=== PATIENT | male | born 1970 | race Caucasian/White ===

== ENCOUNTER 2025-05-11 06:27 | Inpatient (IN) | payer MEDICAID ==
[~2025-05-11] VITALS: Ht 157.5 cm; Wt 73.5 kg
[~2025-05-11 06:27] MED LIST: ASPI-1497 PO; ATOR40TA70 PO
[2025-05-11] MEDS ORDERED: SODIUM CHLORIDE 0.45% 500 ML IV ONE (07:30)
[2025-05-11] MEDS ORDERED: PANT40TA51 PO (07:31)
[2025-05-11] MEDS ORDERED: NICARDIPINE 100MCG/ML 10ML VIAL (CATH LAB) IV ONE (08:00)
[2025-05-11] MEDS ORDERED: HEPARIN 1000 UNITS/ML 10ML ONE (08:34)
[2025-05-11] MEDS ORDERED: LIDOCAINE HCL 1% 20ML VIAL ONE (08:34)
[2025-05-11] MEDS ORDERED: IODIXANOL 320 MG/ML 150ML BOTTLE IV ONE (08:34)
[2025-05-11] MEDS ORDERED: MIDAZOLAM HCL 2 MG/2 ML VIAL ONE (09:04)
[2025-05-11] MEDS ORDERED: FENTANYL CITRATE/PF 50MCG/ML 2ML VIAL ONE (09:05)
[2025-05-11] MEDS ORDERED: CLOPIDOGREL 75MG TABLET ONE (09:44)
[2025-05-11] MEDS ORDERED: ASPIRIN 325MG EC TABLET PO ONE (09:54)
[2025-05-11] MEDS ORDERED: ASPIRIN 325MG TABLET ONE (10:23)
[2025-05-11] MEDS ORDERED: ACETAMINOPHEN 325MG TABLET PO PRN (10:30)
[2025-05-11] MEDS ORDERED: ATROPINE SULFATE 1MG/10ML SYR IV PRN (10:30)
[2025-05-11] MEDS ORDERED: ONDANSETRON HCL 4MG/2ML INJ IV PRN (10:30)
[2025-05-11 10:39] VITALS: BP 159/97; PULSE 68; RESP 12; TEMP 36.8; O2SAT 97
[2025-05-11 11:22] VITALS: BP 149/87; PULSE 63; RESP 15; TEMP 36.8
[2025-05-11 12:00] VITALS: BP 133/98; PULSE 65; RESP 16; TEMP 36.8; O2SAT 97
[2025-05-11 16:00] VITALS: BP 134/86; PULSE 68; RESP 11; TEMP 36.8; O2SAT 95
[2025-05-11] MEDS: METOPROLOL TARTRATE 25MG TABLET PO SCH ×2 (16:05→20:34)
[2025-05-11] MEDS: PANTOPRAZOLE 40MG DR TABLET PO SCH (16:05)
[2025-05-11 20:00] VITALS: BP 127/79; PULSE 67; RESP 13; TEMP 37.2; O2SAT 98
[2025-05-11] MEDS: ATORVASTATIN CALCIUM 40MG TABLET PO SCH (20:34)
[2025-05-12] VITALS: BP 118/77; PULSE 66; RESP 18; TEMP 36.8; O2SAT 96
[2025-05-12 04:00] VITALS: BP 123/81; PULSE 71; RESP 19; TEMP 36.6; O2SAT 97
[2025-05-12] MEDS: PANTOPRAZOLE 40MG DR TABLET PO SCH (06:10)
[2025-05-12 07:38] LABS: BASOPHILS % 0.4 % (0.0-2.0); EOSINOPHILS % 2.6 % (0.0-5.0); HEMATOCRIT. 44.6 % (42.0-52.0); LYMPHOCYTES % 15.9 % (20.0-50.0); MEAN CORPUSCULAR HEMOGLOBIN 31.4 pg (28.0-32.0); MEAN CORPUSCULAR HGB CONC 33.7 g/dL (31.0-37.0); MEAN CORPUSCULAR VOLUME 93.3 fL (80.0-94.0); MEAN PLATELET VOLUME 8.1 fl (7.4-10.4); MONOCYTES % 7.5 % (2.0-8.0); NEUTROPHILS % 73.6 % (40.0-76.0); PLATELET 156 x1000/uL (130-400); RED BLOOD CELL COUNT 4.78 mill/uL (4.7-6.1); RED CELL DISTRIBUTION WIDTH 13.4 % (11.6-14.6); WHITE BLOOD COUNT 7.1 x1000/uL (4.5-11.0)
[2025-05-12 07:46] LABS: CARBON DIOXIDE 24 mEq/L (21-32); CHLORIDE 105 mEq/L (98-107); SODIUM 140 mEq/L (136-145)
[2025-05-12 07:47] LABS: CALCIUM 9.4 mg/dL (8.7-10.4)
[2025-05-12 07:52] LABS: CREATININE 0.8 mg/dL (0.6-1.3); GLUCOSE 112 mg/dL (70-105); UREA NITROGEN BLOOD 13 mg/dL (9-23)
[2025-05-12 08:00] VITALS: BP 137/82; PULSE 90; RESP 16; TEMP 37.6; O2SAT 97
[2025-05-12] MEDS ORDERED: CLOPIDOGREL 75MG TABLET PO SCH (09:00)
[2025-05-12] MEDS ORDERED: ASPIRIN 81MG EC TABLET PO SCH (09:00)
[2025-05-12] MEDS: ASPIRIN 325MG TABLET PO SCH (09:29)
[2025-05-12] MEDS: CLOPIDOGREL 75MG TABLET PO SCH (09:30)
[2025-05-12 12:00] VITALS: BP 132/80; PULSE 72; RESP 16; TEMP 37.6
[2025-05-12 12:13] VITALS: BP 111/75; PULSE 68; TEMP 98.1
== END 2025-05-12 13:30 | disposition home or self-care (01) | DRG 175 ==
LOC: OR 06:27 → 3WST 06:28
PROVIDERS: ADMIT Specialist; ATTEND Specialist
PROC: 4A023N7 Measurement of Cardiac Sampling and Pressure, Left Heart, Percutaneous Approach (ICD-10-PCS; principal; 2025-05-11)
PROC: 027135Z Dilation of Coronary Artery, Two Arteries with Two Drug-eluting Intraluminal Devices, Percutaneous Approach (ICD-10-PCS; 2025-05-11)
PROC: B211YZZ Fluoroscopy of Multiple Coronary Arteries using Other Contrast (ICD-10-PCS; 2025-05-11)
DX: I25.110 Atherosclerotic heart disease of native coronary artery with unstable angina pectoris (principal); E78.1 Pure hyperglyceridemia; I10 Essential (primary) hypertension; Z79.82 Long term (current) use of aspirin; Z79.899 Other long term (current) drug therapy
CPT/HCPCS: 36415; 80048; 82962; 85025; 85347; 92928; 92929; 93005; 93458; A4606; C1725; C1769; C1874; C1887; C1893; J1644; J2250; J3010; J3490; Q9967